=== PATIENT | female | born 2000 | race Caucasian/White ===

== ENCOUNTER 2025-02-05 14:30 | Outpatient (RCR) | payer BC, SELFPAY ==
--- NOTE | 2025-01-23 15:42 | URNOTE ---
Request received for authorization for Iron Sucrose (Venofer) ([id number]). Prior authorization is not required per [facility] active plan, Ref#[id number] date range: 01/23/2025 to 01/22/2026, services are based on medical necessity and guidelines.
[2025-01-25 15:45] VITALS: BP 116/75; PULSE 105; RESP 16; TEMP 36.5; O2SAT 97
[2025-01-25 16:07] VITALS: BP 101/68; PULSE 101
[2025-01-25 16:43] VITALS: BP 110/73; PULSE 100
--- NOTE | 2025-01-25 16:48 | ONC.NURNOTE ---
Tolerated 1st Venofer well; no s/s.
[2025-01-29 14:53] VITALS: BP 111/74; PULSE 83; RESP 16; TEMP 36.7; O2SAT 98
[2025-01-29] MEDS: SODIUM CHLORIDE 0.9 % (FLUSH) 10 ML SYRINGE IVF (15:25)
[2025-01-31 14:50] VITALS: BP 114/74; PULSE 91; RESP 16; TEMP 36.4; O2SAT 97
[2025-01-31] MEDS: SODIUM CHLORIDE 0.9 % (FLUSH) 10 ML SYRINGE IVF (15:00)
[2025-01-31 15:40] VITALS: BP 111/67; PULSE 86; RESP 16; O2SAT 98
[2025-02-02] MEDS: SODIUM CHLORIDE 0.9 % (FLUSH) 10 ML SYRINGE IVF (14:18)
[2025-02-02 14:19] VITALS: BP 107/69; PULSE 96; RESP 16; TEMP 36.9; O2SAT 97
[2025-02-02 14:56] VITALS: BP 120/76; PULSE 94; RESP 16; TEMP 36.4; O2SAT 97
[2025-02-02 15:00] VITALS: BP 116/74; PULSE 92; RESP 16; TEMP 36.3; O2SAT 98
[2025-02-05 15:00] VITALS: BP 109/69; PULSE 94; RESP 12; TEMP 36.1; O2SAT 99
[2025-02-05] MEDS: SODIUM CHLORIDE 0.9 % (FLUSH) 10 ML SYRINGE IVF (15:00)
[2025-02-05 16:00] VITALS: BP 109/72; PULSE 85; RESP 12; TEMP 36.1; O2SAT 98
--- NOTE | 2025-02-05 16:15 | ONC.NURNOTE ---
grease kiran to chin and some chest. healing. no reddnss or drainage.
== END 2025-07-24 23:59 | disposition home or self-care (01) ==
LOC: CCIC 14:30
PROVIDERS: Visit Provider Clinical Nurse Specialist
DX: O99.013 Anemia complicating pregnancy, third trimester (principal); D50.9 Iron deficiency anemia, unspecified
CPT/HCPCS: 96365; 96374; J1756; J7050